=== PATIENT | male | born 1955 | race Caucasian/White ===

== ENCOUNTER 2017-11-15 00:22 | Emergency (ER) | payer MEDICAID, OTHER ==
[~2017-11-15] VITALS: Ht 157.5 cm; Wt 81.0 kg
[2017-11-15] MEDS ORDERED: PROMETHAZINE HCL 25MG TABLET PO ONE (02:45)
[2017-11-15 02:56] VITALS: BP 139/51
== END 2017-11-15 03:00 | disposition home or self-care (01) ==
LOC: ER 00:22
DX: R05 Cough (principal); I10 Essential (primary) hypertension
CPT/HCPCS: 71010; 87804; 93005; 99285; Q0169

== ENCOUNTER 2021-03-06 13:22 | Inpatient (IN) | payer MEDICARE, MEDICAID ==
[~2021-03-06] VITALS: Ht 167.6 cm; Wt 90.3 kg
[2021-03-06] MEDS ORDERED: SODIUM CHLORIDE 0.9% 1,000 ML IV ONE (13:45)
[2021-03-06 14:18] LABS: MEAN CORPUSCULAR HEMOGLOBIN 36.2 pg (28.0-32.0); MEAN CORPUSCULAR VOLUME 124.5 fL (80.0-94.0); PLATELET 148 x1000/uL (130-400); RED BLOOD CELL COUNT 1.36 mill/uL (4.7-6.1); RED CELL DISTRIBUTION WIDTH 18.7 % (11.6-14.6)
[2021-03-06 14:22] LABS: CHLORIDE 111 mEq/L (98-107)
[2021-03-06 14:28] LABS: INR 1.1; PROTHROMBIN TIME 11.6 sec (9.6-11.0)
[2021-03-06 14:29] LABS: HEMATOCRIT. 16.9 % (42.0-52.0); HEMOGLOBIN. 4.9 g/dL (14.0-18.0)
[2021-03-06 15:15] LABS: NUCLEATED RED BLOOD CELLS 1 /100 WBC
[2021-03-06 15:16] LABS: PLATELET ESTIMATE NORMAL
[2021-03-06 16:05] LABS: CLARITY URINE CLEAR (CLEAR); COLOR URINE DARK YELLOW (YELLOW); KETONES URINE NEGATIVE (NEGATIVE); LEUKOCYTE ESTERASE URINE NEGATIVE (NEGATIVE); NITRITE URINE NEGATIVE (NEGATIVE); OCCULT BLOOD URINE NEGATIVE (NEGATIVE); PH URINE 6.5 (4.5-8.0); PROTEIN URINE 1+ (NEGATIVE); SPECIFIC GRAVITY URINE 1.016 (1.005-1.030)
[2021-03-06] MEDS ORDERED: HYDROCODONE/ACETAMINOPHEN 5/325MG TABLET PO PRN ×2 (18:42→23:00)
[2021-03-06] MEDS ORDERED: ACETAMINOPHEN WITH CODEINE 300/30MG TABLET PO PRN (20:40)
[2021-03-06] MEDS ORDERED: IPRATROPIUM/ALBUTEROL 0.5-3(2.5)MG/3ML NEB NEB PRN (23:00)
[2021-03-06] MEDS ORDERED: MORPHINE SULFATE 2 MG/ML CPJ (NOT FOR IM USE) IV PRN (23:00)
[2021-03-06] MEDS ORDERED: DOCUSATE SODIUM 100MG CAPSULE PO PRN (23:00)
[2021-03-06] MEDS ORDERED: ONDANSETRON HCL 4MG/2ML INJ IV PRN (23:00)
[2021-03-06] MEDS ORDERED: LORAZEPAM 2MG/ML CPJ IV PRN (23:00)
[2021-03-06] MEDS ORDERED: CLONIDINE 0.1MG TABLET PO PRN (23:00)
[2021-03-07] VITALS (8 sets, daily range): BP systolic 123–141; BP diastolic 40–61
[2021-03-07] MEDS: THIAMINE HCL 100MG TABLET PO SCH ×2 (02:34→08:28)
[2021-03-07] MEDS ORDERED: ATEN50TA PO (04:22)
[2021-03-07] MEDS ORDERED: HYDR25TA PO (04:24)
[2021-03-07] MEDS: ACETAMINOPHEN 325MG TABLET PO PRN ×3 (08:28→20:29)
[2021-03-07 11:11] LABS: MEAN CORPUSCULAR HEMOGLOBIN 36.1 pg (28.0-32.0); PLATELET 134 x1000/uL (130-400); RED BLOOD CELL COUNT 1.24 mill/uL (4.7-6.1); RED CELL DISTRIBUTION WIDTH 19.5 % (11.6-14.6)
[2021-03-07 11:19] LABS: CHLORIDE 112 mEq/L (98-107)
[2021-03-07 11:26] LABS: HEMATOCRIT. 15.7 % (42.0-52.0); HEMOGLOBIN. 4.5 g/dL (14.0-18.0)
[2021-03-07 13:00] LABS: NUCLEATED RED BLOOD CELLS 1 /100 WBC; PLATELET ESTIMATE NORMAL
[2021-03-07] MEDS ORDERED: POTASSIUM CHLORIDE 20MEQ TABLET SR PO NR (17:00)
[2021-03-07 17:09] LABS: HEMOGLOBIN 5.3 g/dL (14.0-18.0)
[2021-03-08] VITALS: BP 126/66
[2021-03-08] MEDS: ACETAMINOPHEN 325MG TABLET PO PRN ×6 (01:27→17:31)
[2021-03-08 04:00] VITALS: BP 131/66
[2021-03-08 07:34] LABS: HEMATOCRIT 18.7 % (42.0-52.0); HEMOGLOBIN 5.5 g/dL (14.0-18.0)
[2021-03-08 08:00] VITALS: BP 144/50
[2021-03-08] MEDS ORDERED: AMOXICILLIN 500 MG CAPSULE PO SCH (08:00)
[2021-03-08] MEDS: THIAMINE HCL 100MG TABLET PO SCH (09:12)
[2021-03-08] MEDS: AMOXICILLIN 500 MG CAPSULE PO SCH ×3 (09:13→16:15)
[2021-03-08 10:00] LABS: CLARITY URINE CLEAR (CLEAR); COLOR URINE DK YELLOW (YELLOW); KETONES URINE NEGATIVE (NEGATIVE); LEUKOCYTE ESTERASE URINE NEGATIVE (NEGATIVE); NITRITE URINE NEGATIVE (NEGATIVE); OCCULT BLOOD URINE NEGATIVE (NEGATIVE); PROTEIN URINE NEGATIVE (NEGATIVE); SPECIFIC GRAVITY URINE 1.013 (1.005-1.030)
[2021-03-08 12:00] VITALS: BP 144/65
[2021-03-08 16:00] VITALS: BP 133/40
[2021-03-08] MEDS: AMPICILLIN SOD/SULBACTAM NA 3 G in SODIUM CHLORIDE 0.9% 100 ML IV SCH ×2 (18:07→23:50)
[2021-03-08 20:00] VITALS: BP 135/57
[2021-03-09] VITALS (13 sets, daily range): BP systolic 111–142; BP diastolic 46–70
[2021-03-09] MEDS: ACETAMINOPHEN 325MG TABLET PO PRN ×4 (00:08→14:12)
[2021-03-09] MEDS: AMPICILLIN SOD/SULBACTAM NA 3 G in SODIUM CHLORIDE 0.9% 100 ML IV SCH ×4 (06:12→23:27)
[2021-03-09 06:19] LABS: CHLORIDE 109 mEq/L (98-107)
[2021-03-09 06:25] LABS: MEAN CORPUSCULAR HEMOGLOBIN 35.7 pg (28.0-32.0); MEAN CORPUSCULAR VOLUME 121.2 fL (80.0-94.0); MEAN PLATELET VOLUME 8.1 fl (7.4-10.4); PLATELET 120 x1000/uL (130-400); RED BLOOD CELL COUNT 1.32 mill/uL (4.7-6.1); RED CELL DISTRIBUTION WIDTH 22.5 % (11.6-14.6)
[2021-03-09 06:36] LABS: HEMOGLOBIN. 4.7 g/dL (14.0-18.0)
[2021-03-09] MEDS: THIAMINE HCL 100MG TABLET PO SCH (09:28)
[2021-03-09 13:37] LABS: PLATELET ESTIMATE SLIGHTLY DECREASED
[2021-03-09] MEDS: PREDNISONE 20MG TABLET PO SCH (15:17)
[2021-03-09 19:42] LABS: HEMATOCRIT 20.3 % (42.0-52.0); HEMOGLOBIN 6.3 g/dL (14.0-18.0)
[2021-03-09 19:45] LABS: INR 1.1; PROTHROMBIN TIME 11.4 sec (9.6-11.0)
[2021-03-09] MEDS: OMEPRAZOLE 20MG CAPSULE EXTENDED RELEASE PO SCH (21:10)
[2021-03-10] VITALS: BP 128/47
[2021-03-10 04:00] VITALS: BP 117/47
[2021-03-10] MEDS: AMPICILLIN SOD/SULBACTAM NA 3 G in SODIUM CHLORIDE 0.9% 100 ML IV SCH ×3 (06:01→18:03)
[2021-03-10 06:54] LABS: HEMATOCRIT. 21.2 % (42.0-52.0); MEAN CORPUSCULAR VOLUME 110.7 fL (80.0-94.0); MEAN PLATELET VOLUME 8.1 fl (7.4-10.4); PLATELET 117 x1000/uL (130-400); RED BLOOD CELL COUNT 1.92 mill/uL (4.7-6.1); RED CELL DISTRIBUTION WIDTH 23.4 % (11.6-14.6)
[2021-03-10] MEDS: OMEPRAZOLE 20MG CAPSULE EXTENDED RELEASE PO SCH ×2 (06:56→20:52)
[2021-03-10 07:18] LABS: CHLORIDE 111 mEq/L (98-107)
[2021-03-10 07:32] LABS: HEMOGLOBIN. 6.5 g/dL (14.0-18.0)
[2021-03-10 08:00] VITALS: BP 115/49
[2021-03-10] MEDS ORDERED: AMOX-424 MT (09:32)
[2021-03-10] MEDS ORDERED: P20 PO (09:32)
[2021-03-10] MEDS ORDERED: OMEP20CA14 PO (09:32)
[2021-03-10] MEDS: PREDNISONE 20MG TABLET PO SCH (09:38)
[2021-03-10] MEDS: THIAMINE HCL 100MG TABLET PO SCH (09:38)
[2021-03-10 12:00] VITALS: BP 139/63
[2021-03-10 12:34] LABS: NUCLEATED RED BLOOD CELLS 1 /100 WBC; PLATELET ESTIMATE DECREASED
[2021-03-10 16:00] VITALS: BP 109/36
[2021-03-10 20:00] VITALS: BP 123/61
[2021-03-11] VITALS: BP 123/63
[2021-03-11] MEDS: AMPICILLIN SOD/SULBACTAM NA 3 G in SODIUM CHLORIDE 0.9% 100 ML IV SCH ×3 (00:13→12:00)
[2021-03-11 04:00] VITALS: BP 123/53
[2021-03-11] MEDS: OMEPRAZOLE 20MG CAPSULE EXTENDED RELEASE PO SCH (05:47)
[2021-03-11 06:23] LABS: MEAN CORPUSCULAR HEMOGLOBIN 34.8 pg (28.0-32.0); MEAN CORPUSCULAR VOLUME 112.3 fL (80.0-94.0); MEAN PLATELET VOLUME 8.2 fl (7.4-10.4); PLATELET 114 x1000/uL (130-400); RED BLOOD CELL COUNT 1.96 mill/uL (4.7-6.1); RED CELL DISTRIBUTION WIDTH 24.3 % (11.6-14.6)
[2021-03-11 06:43] LABS: HEMOGLOBIN. 6.8 g/dL (14.0-18.0)
[2021-03-11 07:50] VITALS: BP 136/64
[2021-03-11] MEDS: THIAMINE HCL 100MG TABLET PO SCH (08:04)
[2021-03-11] MEDS: PREDNISONE 20MG TABLET PO SCH (08:04)
[2021-03-11 09:43] VITALS: BP 136/64
[2021-03-11 17:58] LABS: PLATELET ESTIMATE DECREASED
== END 2021-03-11 13:10 | disposition home or self-care (01) | DRG 840 ==
LOC: ER 13:22 → 5WST 15:24 → EDBEDREQTM 23:54 → EDBEDREQSVC 23:54 → ENRESERV 03-07 02:06
PROVIDERS: ADMIT Internal Medicine Nephrology; ATTEND Internal Medicine Nephrology
PROC: 30233N1 Transfusion of Nonautologous Red Blood Cells into Peripheral Vein, Percutaneous Approach (ICD-10-PCS; principal; 2021-03-07)
DX: C91.10 Chronic lymphocytic leukemia of B-cell type not having achieved remission (principal); J18.9 Pneumonia, unspecified organism; R65.10 Systemic inflammatory response syndrome (SIRS) of non-infectious origin without acute organ dysfunction; D63.0 Anemia in neoplastic disease; E66.9 Obesity, unspecified; K04.7 Periapical abscess without sinus; E87.6 Hypokalemia; I45.81 Long QT syndrome; E87.8 Other disorders of electrolyte and fluid balance, not elsewhere classified; I10 Essential (primary) hypertension; Z68.33 Body mass index [BMI] 33.0-33.9, adult; Z71.3 Dietary counseling and surveillance; Z92.21 Personal history of antineoplastic chemotherapy; Z79.899 Other long term (current) drug therapy
CPT/HCPCS: 36415; 71046; 80048; 80053; 81003; 82270; 84145; 85014; 85018; 85025; 85049; 85384; 86850; 86870; 86880; 86900; 86920; 93005; 99291; J0295; J7030; J7040; J7042; J7050; J7512; P9016